=== PATIENT | female | born 1995 | race Two or more races ===

== ENCOUNTER 2022-10-07 10:27 | Outpatient (CLI) | payer OTHER | END 2022-10-07 11:46 | disposition home or self-care (01) | LOC: PRENATAL 10:27 | PROVIDERS: ATTEND Obstetrics & Gynecology Maternal & Fetal Medicine | DX: O36.80X0 Pregnancy with inconclusive fetal viability, not applicable or unspecified (principal); Z36 Encounter for antenatal screening of mother; O99.210 Obesity complicating pregnancy, unspecified trimester; Z3A.11 11 weeks gestation of pregnancy ==

== ENCOUNTER 2022-12-08 12:05 | Outpatient (CLI) | payer OTHER | END 2022-12-08 13:54 | disposition home or self-care (01) | LOC: PRENATAL 12:05 | PROVIDERS: ATTEND Obstetrics & Gynecology Maternal & Fetal Medicine | DX: O35.9XX0 Maternal care for (suspected) fetal abnormality and damage, unspecified, not applicable or unspecified (principal); O99.210 Obesity complicating pregnancy, unspecified trimester; O10.019 Pre-existing essential hypertension complicating pregnancy, unspecified trimester; Z3A.20 20 weeks gestation of pregnancy ==

== ENCOUNTER 2023-02-01 13:57 | Outpatient (CLI) | payer OTHER | END 2023-02-01 16:45 | disposition home or self-care (01) | LOC: PRENATAL 13:57 | PROVIDERS: ATTEND Obstetrics & Gynecology Maternal & Fetal Medicine | DX: O26.849 Uterine size-date discrepancy, unspecified trimester (principal); O35.3XX0 Maternal care for (suspected) damage to fetus from viral disease in mother, not applicable or unspecified; O99.210 Obesity complicating pregnancy, unspecified trimester; O10.019 Pre-existing essential hypertension complicating pregnancy, unspecified trimester; Z3A.28 28 weeks gestation of pregnancy ==

== ENCOUNTER 2023-02-28 16:18 | Inpatient (IN) | payer OTHER ==
[~2023-02-28] VITALS: Ht 165.1 cm; Wt 107.0 kg
[2023-02-28] MEDS ORDERED: PRENATAL CAPLE1 EAC1 PO (16:33)
[2023-02-28] MEDS ORDERED: NIFEDIPINE20 MG PO (16:33)
== END 2023-03-07 14:18 | disposition home or self-care (01) | DRG 833 ==
LOC: OBS/DEL 16:18 → OB/GYN 03-01 14:19 → LDR 03-01 14:19 → OBS/DEL 03-01 14:19 → OB/GYN 03-01 16:10
PROVIDERS: ADMIT Obstetrics & Gynecology Obstetrics; ATTEND Obstetrics & Gynecology Obstetrics
PROC: 4A1HXCZ Monitoring of Products of Conception, Cardiac Rate, External Approach (ICD-10-PCS; principal; 2023-03-01)
DX: O11.3 Pre-existing hypertension with pre-eclampsia, third trimester (principal); Z3A.32 32 weeks gestation of pregnancy; Z20.822 Contact with and (suspected) exposure to COVID-19

== ENCOUNTER 2023-03-22 22:31 | Inpatient (IN) | payer OTHER ==
[~2023-03-22] VITALS: Ht 165.1 cm; Wt 108.9 kg
[~2023-03-22 22:31] MED LIST: NIFEDIPINE20 MG PO; PRENATAL CAPLE1 EAC1 PO
[2023-03-23] MEDS ORDERED: NIFEDIPINE20 MG PO (00:09)
[2023-03-23] MEDS ORDERED: CEFADROXIL500 MG PO (00:10)
== END 2023-03-23 18:26 | disposition home or self-care (01) | DRG 833 ==
LOC: LDR 22:31
PROVIDERS: ADMIT Obstetrics & Gynecology Obstetrics; ATTEND Obstetrics & Gynecology Obstetrics
PROC: 4A1HXCZ Monitoring of Products of Conception, Cardiac Rate, External Approach (ICD-10-PCS; principal; 2023-03-22)
PROC: BY4FZZZ Ultrasonography of Third Trimester, Single Fetus (ICD-10-PCS; 2023-03-22)
DX: O11.3 Pre-existing hypertension with pre-eclampsia, third trimester (principal); O26.843 Uterine size-date discrepancy, third trimester; O36.8130 Decreased fetal movements, third trimester, not applicable or unspecified; Z3A.35 35 weeks gestation of pregnancy; Z20.822 Contact with and (suspected) exposure to COVID-19

== ENCOUNTER 2023-04-06 00:37 | Inpatient (IN) | payer OTHER ==
[~2023-04-06] VITALS: Ht 165.1 cm; Wt 3.2 kg
[~2023-04-06 00:37] MED LIST changes: +CEFADROXIL500 MG PO
[2023-04-06] MEDS ORDERED: NIFEDIPINE ER30 M1 (15:07)
== END 2023-04-10 14:45 | disposition home or self-care (01) | DRG 788 ==
LOC: LDR 00:37 → OB/GYN 00:37 → LDR 14:16 → OB/GYN 04-07 21:41
PROVIDERS: ADMIT Obstetrics & Gynecology Obstetrics; ATTEND Obstetrics & Gynecology Obstetrics
PROC: 4A1HXCZ Monitoring of Products of Conception, Cardiac Rate, External Approach (ICD-10-PCS; 2023-04-06)
PROC: 10D00Z1 Extraction of Products of Conception, Low, Open Approach (ICD-10-PCS; principal; 2023-04-07 17:30)
DX: O13.4 Gestational [pregnancy-induced] hypertension without significant proteinuria, complicating childbirth (principal); Z3A.37 37 weeks gestation of pregnancy; Z37.0 Single live birth; Z20.822 Contact with and (suspected) exposure to COVID-19